=== PATIENT | male | born 1955 | race African-American/Black ===

== ENCOUNTER 2018-11-10 02:58 | Inpatient (IN) | payer OTHER ==
[2018-11-10 03:21] VITALS: BMI 26.6
--- NOTE | 2018-11-10 03:27 | PDOC ---
History of Present Illness - General Chief Complaint: Shortness of Breath Stated Complaint: STOMACH PAIN Time Seen by Provider: 11/10/18 03:27 - History of Present Illness Initial Comments: 11/10/18 04:56 HPI: 63 y/o M with hx of HTN, HLD, CAD s/p CABG and defibrillator, prostate cancer s/ p radiation presentinw tih 1 week of generalized abdominal discomfort and subsequent SOB. He reports he was in his normal state of health, however, he was gradually developing abdominal discomfort and distention. As a result, he was having increased pressure on his chest and he felt difficulty breathing as well as wheezing. His SOB was present at rest but also worsened on exertion. He denies chest pain, palpaitaitons, n/v, fever, chills, FREY, dysuria, diarrhea, cough. He also reports decreased appetite and intermittent LH. PMHx: as noted above ROS: as noted SHx: Denies tobacco use; no alcohol use; no rec drugs Allergies: NKDA ROS: GENERAL/CONSTITUTIONAL: No fever or chills. No weakness. HEAD, EYES, EARS, NOSE AND THROAT: No change in vision. No ear pain or discharge. No sore throat. CARDIOVASCULAR: +shortness of breath RESPIRATORY: No cough or hemoptysis. GASTROINTESTINAL: No nausea, vomiting, diarrhea or constipation. GENITOURINARY: No dysuria, frequency, or change in urination. MUSCULOSKELETAL: No joint or muscle swelling or pain. No neck or back pain. SKIN: No rash NEUROLOGIC: No headache, vertigo, loss of consciousness, or change in strength/ sensation. ENDOCRINE: No increased thirst. No abnormal weight change HEMATOLOGIC/LYMPHATIC: No anemia, easy bleeding, or history of blood clots. ALLERGIC/IMMUNOLOGIC: No hives or skin allergy. PE: GENERAL: Awake, alert, and fully oriented, no acute distress HEAD: No signs of trauma, normocephalic, atraumatic EYES: EOMI, sclera anicteric, conjunctiva clear ENT: Auricles normal inspection, hearing grossly normal, nares patent, oropharynx clear without exudates. Moist mucosa NECK: Normal ROM, no lymphadenopathy LUNGS: No increased work of breathing, symmetrical chest rise, decreased breath sounds on the right lung pereyra HEART: Regular rate and rhythm, normal S1 and S2, no murmurs, peripheral pulses 2+ and equal bilaterally. ABDOMEN: Soft, nondistended, nontender, normoactive bowel sounds. No guarding, no rebound. No masses EXTREMITIES: Normal inspection, Normal range of motion, no edema. No clubbing or cyanosis. NEUROLOGICAL: Cranial nerves II through XII grossly intact. Normal speech, normal gait, no focal sensorimotor deficits SKIN: Warm, Dry, normal turgor, no rashes or lesions noted Past History - Past Medical History Allergies/Adverse Reactions: Allergies Allergy/AdvReac Type Severity Reaction Status Date / Time levofloxacin [From Levaquin] Allergy Verified 03/04/16 12:50 Home Medications: Ambulatory Orders Amiodarone HCl [Cordarone -] 200 mg PO DAILY 06/25/13 Aspirin 81 mg PO DAILY 06/25/13 Carvedilol [Coreg] 25 mg PO BID 06/25/13 Sacubitril/Valsartan [Entresto 24 mg-26 mg Tablet] 1 each PO BID 11/10/18 Anemia: No Asthma: No Cancer: Yes (PROSTATE, TAKING INJECTIONS NOW) Cardiac Disorders: Yes (DEFIBRILLATOR) CVA: No COPD: No CHF: No Dementia: No Diabetes: No GI Disorders: Yes Disorders: No HTN: Yes Hypercholesterolemia: Yes Liver Disease: No Seizures: No Thyroid Disease: No - Surgical History Abdominal Surgery: No Appendectomy: No Cardiac Surgery: Yes (bypass,defibrilator-2008; QUAD BYPASS 2005/pacemaker) Cholecystectomy: No Lung Surgery: No Neurologic Surgery: No Orthopedic Surgery: No - Immunization History Td Vaccination: Yes TDAP Vaccination: Yes Immunization Up to Date: Yes - Suicide/Smoking/Psychosocial Hx Smoking History: Never smoked Have you smoked in the past 12 months: No Information on smoking cessation initiated: No Hx Alcohol Use: No Drug/Substance Use Hx: No Substance Use Type: None Hx Substance Use Treatment: No *Physical Exam - Vital Signs Last Vital Signs Temp Pulse Resp BP Pulse Ox 98.2 F 77 22 H 145/98 88 L 11/10/18 03:18 11/10/18 03:18 11/10/18 03:18 11/10/18 03:18 11/10/18 03:18 ED Treatment Course - LABORATORY CBC & Chemistry Diagram: 11/10/18 04:04 11/10/18 04:04 Medical Decision Making - Medical Decision Making 11/10/18 06:07 63 y/o M with hx of HTN, HLD, CAD s/p CABG and defibrillator, prostate cancer s/ p radiation presentinw tih 1 week of generalized abdominal discomfort and subsequent SOB. Vitals notable for hypoxia 88% on admission and 93% on 5L NC. Pe with decreased breath sounds on the right. -cbc, cmp, cardiac profile, ua -ekg, cxr, kub 11/10/18 06:08 cxr with right middle lobe consolidation with concern for pna will admit to hospitalist; pending callback given ceft and zithromax will draw blood cxs 11/10/18 06:[address] Susie bush *DC/Admit/Observation/Transfer Diagnosis at time of Disposition: SOB (shortness of breath) PNA (pneumonia) Qualifiers: Pneumonia type: due to unspecified organism Laterality: right Lung location: middle lobe of lung Qualified Code(s): J18.1 - Lobar pneumonia, unspecified organism - Discharge Dispostion Condition at time of disposition: Stable Decision to Admit order: Yes - Referrals Referrals: Susie Bush MD [Primary Care Provider] - - Patient Instructions - Post Discharge Activity
--- NOTE | 2018-11-10 03:31 | PDOC ---
Attending Attestation - Resident Resident Name: Rickie,Dominickemmy - ED Attending Attestation I have performed the following: I have examined & evaluated the patient, The case was reviewed & discussed with the resident, I agree w/resident's findings & plan - HPI HPI: 11/10/18 05:12 Pt comes with cough and SOB getting worse. He has pulsox of 88% on arrival. He had a clean bill of health from his car repairer earlier this week. Pt has no fever or chills. Appetite is good. No pitting edema. - Physicial Exam PE: 11/10/18 05:13 Agree with resident exam. Right sided coarse breath sounds. Pt has a wet sounding cough 11/10/18 05:14 ABd soft NT ND. - Medical Decision Making 11/10/18 05:14 CXR pending. EKG needed. Labs are WNL; WBC is twice his normal. 11/10/18 05:56 Pt has a right sided pneumonia and we will admit
[2018-11-10 04:34] LABS: BASO % 0.4 % (0-2.0); EOS % 1.4 % (0-4.5); HEMATOCRIT 40.5 % (35.4-49); HEMOGLOBIN 13.6 GM/dL (11.7-16.9); LYMPH % 12.5 % (8-40); MCH 31.2 pg (25.7-33.7); MCHC 33.5 g/dl (32.0-35.9); MEAN CELL VOLUME 93.1 fl (80-96); MEAN PLT VOLUME 8.8 fl (7.5-11.1); MONO % 5.1 % (3.8-10.2); NEUT % 80.6 % (42.8-82.8); PLATELET COUNT 153 K/MM3 (134-434); RBC 4.35 M/mm3 (4.00-5.60); RDW 14.3 % (11.9-15.9); WHITE BLOOD COUNT 7.2 K/mm3 (4.0-10.0)
[2018-11-10 04:51] LABS: ALBUMIN 3.6 g/dl (3.4-5.0); BILIRUBIN,TOTAL 1.1 mg/dL (0.2-1); CALCIUM 8.6 mg/dL (8.5-10.1); CREATININE 1.4 mg/dL (0.55-1.3); POTASSIUM 4.4 mmol/L (3.5-5.1); TOT PROT 6.6 g/dl (6.4-8.2)
[2018-11-10 05:22] LABS: URINE APPEARANCE CLEAR; URINE BILIRUBIN NEGATIVE (NEGATIVE); URINE COLOR YELLOW; URINE GLUCOSE (UA) NEGATIVE (NEGATIVE); URINE KETONE NEGATIVE (NEGATIVE); URINE LEUK ESTERASE NEGATIVE (NEGATIVE); URINE NITRITE NEGATIVE (NEGATIVE); URINE PROTEIN TRACE (NEGATIVE)
[2018-11-10] MEDS ORDERED: AZITHROMYCIN IVPB 500 MG in DEXTROSE 5%-WATER - 250 ML IVPB ONE (05:52)
[2018-11-10] MEDS ORDERED: CEFTRIAXONE 1 GM in DEXTROSE 5%-WATER - 50 ML IVPB ONE (05:52)
[2018-11-10] MEDS ORDERED: AZITHROMYCIN IVPB 500 MG/250 ML BAG IVPB ONE (06:12)
[2018-11-10] MEDS ORDERED: CEFTRIAXONE 1 GM/50 ML BAG ONE (06:14)
--- NOTE | 2018-11-10 06:53 | HP ---
Admitting History and Physical - Primary Care Physician PCP: Susie Dominguez - Admission Chief Complaint: Abdominal Pain, SOB, Cough History of Present Illness: This is a 63 y/o man with a significant medical history of HTN, HLD, CAD s/p CABG, s/p AICD, Prostate Ca (RT completed 2 yrs ago). Who presents to the ED for abdominal pain and increased SOB with a cough. Patient reports having epigastric pain with "mushy" brown diarrhea x2 episodes starting yesterday am. Patient denies fever, chills, dizziness, CP, palpitations, N/V, constipation, melena, hematochezia, dysuria. Patient's family member reports patient having- Pneumoccal vaccine 2017 History Source: Patient, Family Member Limitations to Obtaining History: No Limitations - Past Medical History Cardiovascular: Yes: CAD, CHF (cardiomyopathy, AICD), HTN, Hyperlipdemia Renal/: Yes: Cancer (Prostate) - Past Surgical History Past Surgical History: Yes: AICD, CABG - Smoking History Smoking history: Never smoked Have you smoked in the past 12 months: No - Alcohol/Substance Use Hx Alcohol Use: No History of Substance Use: reports: None - Social History Usual Living Arrangement: Yes: With Spouse ADL: Independent History of Recent Travel: No Home Medications - Allergies Allergies/Adverse Reactions: Allergies Allergy/AdvReac Type Severity Reaction Status Date / Time levofloxacin [From Levaquin] Allergy Verified 03/04/16 12:50 - Home Medications Home Medications: Ambulatory Orders Amiodarone HCl [Cordarone -] 200 mg PO DAILY 06/25/13 Aspirin 81 mg PO DAILY 06/25/13 Carvedilol [Coreg] 25 mg PO BID 06/25/13 Sacubitril/Valsartan [Entresto 24 mg-26 mg Tablet] 1 each PO BID 11/10/18 Family Disease History - Family Disease History Family Disease History: Heart Disease: Father (), Mother (), Sister ([place]) Review of Systems - Review of Systems Constitutional: reports: No Symptoms Eyes: reports: No Symptoms HENT: reports: No Symptoms Neck: reports: No Symptoms Cardiovascular: reports: Shortness of Breath Respiratory: reports: Cough, SOB, SOB on Exertion Gastrointestinal: reports: Abdominal Pain, Diarrhea Genitourinary: reports: No Symptoms Breasts: reports: No Symptoms Reported Musculoskeletal: reports: No Symptoms Integumentary: reports: No Symptoms Neurological: reports: No Symptoms Endocrine: reports: No Symptoms Hematology/Lymphatic: reports: No Symptoms Psychiatric: reports: No Symptoms Pain Intensity: 2 Physical Examination Vital Signs: Vital Signs Temperature 98.2 F 11/10/18 03:18 Pulse Rate 68 11/10/18 05:45 Respiratory Rate 20 11/10/18 05:45 Blood Pressure 137/75 11/10/18 05:45 O2 Sat by Pulse Oximetry (%) 96 11/10/18 05:45 Constitutional: Yes: Well Nourished, No Distress, Calm Eyes: Yes: WNL, Conjunctiva Clear, EOM Intact, PERRL HENT: Yes: WNL, Atraumatic, Normocephalic Neck: Yes: WNL, Supple, Trachea Midline Cardiovascular: Yes: WNL, Regular Rate and Rhythm, S1, S2 Respiratory: Yes: Diminished (RML B/L bases), On Nasal O2 Gastrointestinal: Yes: Normal Bowel Sounds, Soft. No: Tenderness, Tenderness, Epigastrium, Tenderness, Rebound Renal/: Yes: WNL Breast(s): Yes: WNL Musculoskeletal: Yes: WNL Extremities: Yes: WNL Edema: No Peripheral Pulses WNL: Yes Neurological: Yes: WNL, Alert, Oriented, Cran Nerves II-XII Intact ...Motor Strength: WNL Psychiatric: Yes: WNL, Alert, Oriented Labs: CBC, BMP 11/10/18 04:04 11/10/18 04:04 Imaging - Results Chest X-ray: Image Reviewed Cat Scan: Image Reviewed EKG: Image Reviewed Problem List - Problems (1) PNA (pneumonia) Assessment/Plan: Will treat for CAP CURB65 score 1 qSOFA 0 No leukocytosis likely due to prostate ca w/RT Blood Cultures-pending Urine Legionella ordered Sputum culture-ordered Chest Xray image reviewed- RML Infiltrate awaiting official report Ceftriaxone and Azithromycin given in ED, will continue Appreciate ID consult O2 Monitor CBC, BMP Tylenol prn Code(s): J18.9 - PNEUMONIA, UNSPECIFIED ORGANISM Qualifiers: Pneumonia type: due to unspecified organism Laterality: right Lung location: middle lobe of lung Qualified Code(s): J18.1 - Lobar pneumonia, unspecified organism (2) SOB (shortness of breath) Assessment/Plan: see above Code(s): R06.02 - SHORTNESS OF BREATH (3) MENDOZA (acute kidney injury) Assessment/Plan: Cr 1.4 slightly above baseline Likely secondary to diarrhea/dehydration No IVF secondary to CHF hx Consider Nephrology consult if condition worsens Code(s): N17.9 - ACUTE KIDNEY FAILURE, UNSPECIFIED (4) Abdominal pain Assessment/Plan: Abd Xray- retained stool, no obstruction Monitor BMP Monitor vitals Code(s): R10.9 - UNSPECIFIED ABDOMINAL PAIN (5) Diarrhea Assessment/Plan: Stool Culture O+P Monitor BMP Code(s): R19.7 - DIARRHEA, UNSPECIFIED (6) CAD (coronary artery disease) Assessment/Plan: stable Continue Amiodarone, Asa, Coreg with parameters EKG- reviewed Code(s): I25.10 - ATHSCL HEART DISEASE OF [place] CORONARY ARTERY W/O ANG PCTRS Qualifiers: (7) CHF (congestive heart failure) Assessment/Plan: Chest Xray image reviewed Continue Entresto Code(s): I50.9 - HEART FAILURE, UNSPECIFIED Qualifiers: (8) High blood pressure Assessment/Plan: stable Continue home meds with parameters Monitor renal function Code(s): I10 - ESSENTIAL (PRIMARY) HYPERTENSION Qualifiers: (9) Hypercholesterolemia Assessment/Plan: stable no current home med Code(s): E78.0 - PURE HYPERCHOLESTEROLEMIA * DO NOT USE * (10) Prostate CA Assessment/Plan: s/p RT Code(s): C61 - MALIGNANT NEOPLASM OF PROSTATE (11) S/P CABG (coronary artery bypass graft) Code(s): Z95.1 - PRESENCE OF AORTOCORONARY BYPASS GRAFT Assessment/Plan This is a 63 y/o man with a PMHx of HTN. HLD, CAD s/p CABG, s/p AICD, CHF, Prostate Ca (RT 2 yrs ago). Admitted for Pneumonia for further evaluation of their emergent condition. Plan: See Problem List FEN Fluid Restriction 1L Replete lytes prn Low Na Diet DVT ppx OOB SCDs Heparin SQ Dispo: Requires Inpatient Care Visit type - Emergency Visit Emergency Visit: Yes ED Registration Date: 11/10/18 Care time: The patient presented to the Emergency Department on the above date and was hospitalized for further evaluation of their emergent condition. - New Patient This patient is new to me today: Yes Date on this admission: 11/10/18 - Critical Care Critical Care patient: No
--- NOTE | 2018-11-10 08:56 | PN ---
Progress Note (short form) - Note Progress Note: pt examined in ER on O2 Feeling better no SOB cough+ Vital Signs - 24 hr 11/10/18 11/10/18 11/10/18 03:18 05:45 06:45 Temperature 98.2 F Pulse Rate 77 Pulse Rate [ 68 Apical] Respiratory 22 H 20 Rate Blood Pressure 145/98 Blood Pressure 137/75 [Left Arm] O2 Sat by Pulse 88 L 96 96 Oximetry (%) 11/10/18 11/10/18 11/10/18 07:49 07:50 08:00 Temperature 97.8 F Pulse Rate Pulse Rate [ 50 L Apical] Respiratory 18 Rate Blood Pressure Blood Pressure 120/67 [Left Arm] O2 Sat by Pulse 95 95 Oximetry (%) 11/10/18 11/10/18 11/10/18 10:15 12:29 12:55 Temperature 97.6 F 97.7 F 97.7 F Pulse Rate 51 L 51 L Pulse Rate [ 62 Apical] Respiratory 20 18 18 Rate Blood Pressure 126/76 126/76 Blood Pressure 133/75 [Left Arm] O2 Sat by Pulse Oximetry (%) Current Medications Generic Name Dose Route Start Last Admin Trade Name Freq PRN Reason Stop Dose Admin Amiodarone HCl 200 mg 11/10/18 10:00 11/10/18 10:48 Cordarone - PO 200 mg DAILY RICKIE Administration Aspirin 81 mg 11/10/18 10:00 11/10/18 10:48 Asa - PO 81 mg DAILY RICKIE Administration Carvedilol 25 mg 11/10/18 10:00 11/10/18 10:48 Coreg - PO 25 mg BID [facility] Administration Heparin Sodium (Porcine) 5,000 unit 11/10/18 10:00 11/10/18 10:48 Heparin - SQ 5,000 unit BID [facility] Administration Azithromycin 500 mg in 250 mls @ 250 mls/hr 11/11/18 10:00 Zithromax 500mg Ivpb (Pre-Docked) IVPB DAILY [facility] Ceftriaxone Sodium 1 gm/ 50 mls @ 200 mls/hr 11/11/18 10:00 Dextrose IVPB DAILY [facility] Protocol Sacubitril/Valsartan 1 tab 11/10/18 10:00 11/10/18 10:49 Entresto 24 Mg-26 Mg Tablet PO Not Given BID [facility] Laboratory Results - last 24 hr 11/10/18 11/10/1811/10/19 04:04 04:04 04:04 WBC 7.2 RBC 4.35 Hgb 13.6 Hct 40.5 MCV 93.1 MCH 31.2 MCHC 33.5 RDW 14.3 Plt Count 153 MPV 8.8 Absolute Neuts (auto) 5.8 Neutrophils % 80.6 D Lymphocytes % 12.5 D Monocytes % 5.1 Eosinophils % 1.4 Basophils % 0.4 Nucleated RBC % 0 Sodium 141 Potassium 4.4 Chloride 108 H Carbon Dioxide 29 Anion Gap 4 L BUN 19.0 H Creatinine 1.4 H Est GFR (CKD-EPI)AfAm 61.53 Est GFR (CKD-EPI)NonAf 53.09 Random Glucose 98 Calcium 8.6 Total Bilirubin 1.1 H AST 19 ALT 22 Alkaline Phosphatase 69 Creatine Kinase 168 Creatine Kinase Index 0.6 CK-MB (CK-2) 1.1 Troponin I 0.02 Total Protein 6.6 Albumin 3.6 Urine Color Urine Appearance Urine pH Ur Specific [place] Urine Protein Urine Glucose (UA) Urine Ketones Urine Blood Urine Nitrite Urine Bilirubin Urine Urobilinogen Ur Leukocyte Esterase 11/10/18 04:43 WBC RBC Hgb Hct MCV MCH MCHC RDW Plt Count MPV Absolute Neuts (auto) Neutrophils % Lymphocytes % Monocytes % Eosinophils % Basophils % Nucleated RBC % Sodium Potassium Chloride Carbon Dioxide Anion Gap BUN Creatinine Est GFR (CKD-EPI)AfAm Est GFR (CKD-EPI)NonAf Random Glucose Calcium Total Bilirubin AST ALT Alkaline Phosphatase Creatine Kinase Creatine Kinase Index CK-MB (CK-2) Troponin I Total Protein Albumin Urine Color Yellow Urine Appearance Clear Urine pH 5.0 Ur Specific [place] 1.025 Urine Protein Trace Urine Glucose (UA) Negative Urine Ketones Negative Urine Blood Negative Urine Nitrite Negative Urine Bilirubin Negative Urine Urobilinogen 1.0 Ur Leukocyte Esterase Negative S1 S2 RRR Lungs decreased Ronchi on right base Abd-soft, NT no edema PLAN iv antibiotics monitor renal function ID eval urine antigens check cultures Problem List - Problems (1) MENDOZA (acute kidney injury) Code(s): N17.9 - ACUTE KIDNEY FAILURE, UNSPECIFIED (2) PNA (pneumonia) Code(s): J18.9 - PNEUMONIA, UNSPECIFIED ORGANISM Qualifiers: Pneumonia type: due to unspecified organism Laterality: right Lung location: middle lobe of lung Qualified Code(s): J18.1 - Lobar pneumonia, unspecified organism (3) Prostate CA Code(s): C61 - MALIGNANT NEOPLASM OF PROSTATE (4) SOB (shortness of breath) Code(s): R06.02 - SHORTNESS OF BREATH (5) AICD (automatic cardioverter/defibrillator) present Code(s): Z95.810 - PRESENCE OF AUTOMATIC (IMPLANTABLE) CARDIAC DEFIBRILLATOR (6) CAD (coronary artery disease) Code(s): I25.10 - ATHSCL HEART DISEASE OF [place] CORONARY ARTERY W/O ANG PCTRS Qualifiers:
[2018-11-10] MEDS ORDERED: AMIODARONE HCL 200 MG TABLET (FP) PO SCH (10:00)
[2018-11-10] MEDS ORDERED: CEFTRIAXONE 1 GM in DEXTROSE 5%-WATER - 50 ML IVPB SCH (10:00)
[2018-11-10] MEDS: CARVEDILOL 25 MG TABLET (FP) PO SCH ×2 (10:48→22:14)
[2018-11-10] MEDS: ASPIRIN 81 MG CHEWABLE TABLETS PO SCH (10:48)
[2018-11-10] MEDS: AMIODARONE HCL 200 MG TABLET (FP) PO SCH (10:48)
[2018-11-10] MEDS: HEPARIN NA (PORCINE) 5,000 UNITS/ML 1ML VIAL SQ SCH ×2 (10:48→22:13)
[2018-11-10] MEDS: SACUBITRIL/VALSARTAN 24 MG-26 MG TABLET PO SCH ×2 (10:49→22:14)
--- NOTE | 2018-11-10 11:43 | PN ---
Progress Note (short form) - Note Progress Note: ID CONSULT DICTATED R/O COMMUNITY ACQUIRED V. ATYPICAL PNEUMONIA CAD S/P CABG/ DEFIBRILLATOR LEVAQUIN ALLERGY AWAIT C/S CONTINUE ZITHROMAX/ CEFTRIAXONE
--- NOTE | 2018-11-10 12:29 | CONS ---
DATE OF CONSULTATION: 11/10/2018 The patient is a 63-year-old male with a history of coronary artery disease, status post coronary artery bypass, and implanted defibrillator who is evaluated for pneumonia. He reports not feeling well beginning on Monday, November 05, 2018. He began to experience abdominal discomfort and loose bowel movements. He had increasing dyspnea and chest discomfort. He was evaluated by his agent telegrapher. He presented to the emergency room on November 10, where he was noted to be hypoxemic. Chest x-ray shows increased markings in the right perihilar and base area, consistent with possible pneumonia. He was empirically treated with zithromax and ceftriaxone. At the present time, he has no complaints of chest pain. He is slightly short of breath at rest on nasal cannula. He denies any cough or sputum production. No hemoptysis. The patient denies any ill contacts. He is a nonsmoker. No recent hospitalizations. He reports being up-to-date with respective influenza and pneumococcal vaccines. The patient denies any ill contacts at home or at work. 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 PAST MEDICAL HISTORY: Positive for prostate cancer, status post seed implantation, hypertension, hyperlipidemia, coronary artery disease. PAST SURGICAL HISTORY: Status post coronary artery bypass, implanted defibrillator. ALLERGIES: LEVAQUIN (rash). MEDICATIONS: Amiodarone, aspirin, Coreg, valsartan. 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 He is a nonsmoker, nondrinker. SYSTEMS REVIEW: Neurologic: No loss of consciousness, seizure activity, focal weakness. Cardiac: As per HPI. Respiratory: As per HPI. Gastrointestinal: Positive for diarrhea. Denies vomiting. Genitourinary: Negative for urinary tract infection. LABORATORY DATA: White count 7.2, hematocrit 40.5, platelet count 153. Creatinine 1.4. Liver enzymes normal. Urinalysis negative. PHYSICAL EXAMINATION: General: He is awake, he is weak-appearing, supine in bed. He is not acutely toxic. His breathing is nonlabored on nasal cannula O2. Vital Signs: Temperature 97.6, blood pressure 133/75, pulse 62 and regular, respirations 20/min. HEENT: Sclerae anicteric. Heart Sounds: S1, S2. Lungs: Crackles in the right mid lung field. Abdomen: Soft. No tenderness elicited. No mass, rebound, or rigidity. Extremities: Negative for edema. IMPRESSION: 1. Rule out community-acquired versus atypical right lower lobe pneumonia. 2. Coronary artery disease, status post bypass surgery and defibrillator. 3. QUINOLONE allergy. Await cultures. Obtain sputum culture, urine legionella and pneumococcal antigens. Empiric antibiotic coverage with zithromax and ceftriaxone. Further recommendations pending cultures. Will follow. Thank you for the kind referral. TIRSO VERAS M.D. [id number]
--- NOTE | 2018-11-10 16:44 | EKG ---
Test Reason : Blood Pressure : / mmHG Vent. Rate : 066 BPM Atrial Rate : 066 BPM P-R Int : 230 ms QRS Dur : 124 ms QT Int : 488 ms P-R-T Axes : 070 077 083 degrees QTc Int : 511 ms SINUS RHYTHM WITH 1ST DEGREE A-V BLOCK WITH FREQUENT PREMATURE VENTRICULAR COMPLEXES LEFT ATRIAL ENLARGEMENT LEFT VENTRICULAR HYPERTROPHY WITH QRS WIDENING AND REPOLARIZATION ABNORMALITY ABNORMAL ECG WHEN COMPARED WITH ECG OF 04-MAR-2016 13:36, PREMATURE VENTRICULAR COMPLEXES ARE NOW PRESENT Confirmed by MD WENDI, CITLALY ([id number]) on 11/10/2018 4:43:50 PM Referred By: Confirmed By:CITLALY ADAME MD
[2018-11-10] MEDS ORDERED: PT OWN MED DRAWER 7, Y5N ONE (21:03)
[2018-11-11 08:15] LABS: BLOOD UREA NITROGEN 19.8 mg/dL (7-18); CALCIUM 8.2 mg/dL (8.5-10.1); CREATININE 1.2 mg/dL (0.55-1.3); POTASSIUM 3.9 mmol/L (3.5-5.1)
[2018-11-11 08:18] LABS: BASO % 0.5 % (0-2.0); EOS % 1.8 % (0-4.5); HEMATOCRIT 36.9 % (35.4-49); HEMOGLOBIN 12.3 GM/dL (11.7-16.9); MCH 30.9 pg (25.7-33.7); MCHC 33.4 g/dl (32.0-35.9); MEAN CELL VOLUME 92.6 fl (80-96); MEAN PLT VOLUME 8.2 fl (7.5-11.1); MONO % 8.8 % (3.8-10.2); NEUT % 58.9 % (42.8-82.8); PLATELET COUNT 125 K/MM3 (134-434); RBC 3.98 M/mm3 (4.00-5.60); RDW 13.9 % (11.9-15.9); WHITE BLOOD COUNT 3.8 K/mm3 (4.0-10.0)
[2018-11-11] MEDS ORDERED: cefTRIAXone SODIUM 1 GM VIAL ONE (08:51)
[2018-11-11] MEDS ORDERED: DEXTROSE 5%-WATER - 50 ML IVPB ONE (08:51)
[2018-11-11] MEDS: CEFTRIAXONE 1 GM in DEXTROSE 5%-WATER - 50 ML IVPB SCH (10:11)
[2018-11-11] MEDS: CARVEDILOL 25 MG TABLET (FP) PO SCH ×2 (10:12→22:01)
[2018-11-11] MEDS: HEPARIN NA (PORCINE) 5,000 UNITS/ML 1ML VIAL SQ SCH ×2 (10:12→22:00)
[2018-11-11] MEDS: AMIODARONE HCL 200 MG TABLET (FP) PO SCH (10:12)
[2018-11-11] MEDS: ASPIRIN 81 MG CHEWABLE TABLETS PO SCH (10:12)
[2018-11-11] MEDS ORDERED: PT OWN MED DRAWER 7, Y5N ONE ×2 (10:16→21:57)
[2018-11-11] MEDS: SACUBITRIL/VALSARTAN 24 MG-26 MG TABLET PO SCH ×2 (10:19→22:00)
[2018-11-11] MEDS: AZITHROMYCIN IVPB 500 MG/250 ML BAG IVPB SCH (11:15)
--- NOTE | 2018-11-11 11:54 | PN ---
Progress Note, Physician History of Present Illness: AWAKE, ALERT SEATED IN BED NO COMPLAINTS DENIES CHEST PAIN/ DYSPNEA/ COUGH NO C/O F/C BREATHING NON-LABORED AT REST AFEBRILE LEUKOPENIA/ THROMBOCYTOPENIA NOTED C/S PENDING LEGIONELLA AG (-) - Current Medication List Current Medications: Active Medications Amiodarone HCl (Cordarone -) 200 mg PO DAILY [facility] Last Admin: 11/11/18 10:12 Dose: 200 mg Aspirin (Asa -) 81 mg PO DAILY [facility] Last Admin: 11/11/18 10:12 Dose: 81 mg Carvedilol (Coreg -) 25 mg PO BID [facility] Last Admin: 11/11/18 10:12 Dose: 25 mg Heparin Sodium (Porcine) (Heparin -) 5,000 unit SQ BID [facility] Last Admin: 11/11/18 10:12 Dose: 5,000 unit Azithromycin (Zithromax 500mg Ivpb (Pre-Docked)) 500 mg in 250 mls @ 250 mls/ hr IVPB DAILY [facility] Last Admin: 11/11/18 11:15 Dose: 250 mls/hr Ceftriaxone Sodium 1 gm/ (Dextrose) 50 mls @ 200 mls/hr IVPB DAILY [facility]; Protocol Last Admin: 11/11/18 10:11 Dose: 200 mls/hr Sacubitril/Valsartan (Entresto 24 Mg-26 Mg Tablet) 1 tab PO BID [facility] Last Admin: 11/11/18 10:19 Dose: 1 tab - Objective Vital Signs: Vital Signs Temperature 97.9 F 11/11/18 00:00 Pulse Rate 60 11/11/18 06:00 Respiratory Rate 18 11/11/18 06:00 Blood Pressure 114/66 11/11/18 06:00 O2 Sat by Pulse Oximetry (%) 99 11/10/18 21:00 Constitutional: Yes: No Distress Cardiovascular: Yes: Regular Rate and Rhythm, S1, S2 Respiratory: Yes: Rhonchi Gastrointestinal: Yes: Normal Bowel Sounds, Soft. No: Tenderness Edema: No Labs: CBC, BMP 11/11/18 07:15 11/11/18 07:15 Assessment/Plan PNEUMONIA LEUKOPENIA/ THROMBOCYTOPENIA ? VIRAL LEVAQUIN ALLERGY CONTINUE ZITHROMAX/ CEFTRIAXONE RESP VIRAL PANEL
--- NOTE | 2018-11-11 12:11 | PN ---
Progress Note (short form) - Note Progress Note: pt seen/examined chart reviewed awake/ comfortable feels better. Vital Signs Temp 97.9 F 11/11/18 00:00 Pulse 60 11/11/18 06:00 Resp 18 11/11/18 06:00 BP 114/66 11/11/18 06:00 Pulse Ox 99 11/10/18 21:00 Intake & Output 11/10/18 11/11/18 11/11/18 23:59 11:59 23:59 Intake Total 0 Balance 0 Weight 175 lb Intake: IV 0 Saline lock 0 Other: Voiding Method Urinal # Unmeasured Voids Void 1 Bowel Movement No Height 5 ft 8 in Body Mass Index (BMI) 26.6 Weight Measurement [facility] Medications Amiodarone HCl (Cordarone -) 200 mg PO DAILY [facility] Last Admin: 11/11/18 10:12 Dose: 200 mg Aspirin (Asa -) 81 mg PO DAILY [facility] Last Admin: 11/11/18 10:12 Dose: 81 mg Carvedilol (Coreg -) 25 mg PO BID [facility] Last Admin: 11/11/18 10:12 Dose: 25 mg Heparin Sodium (Porcine) (Heparin -) 5,000 unit SQ BID RICKIE Last Admin: 11/11/18 10:12 Dose: 5,000 unit Azithromycin (Zithromax 500mg Ivpb (Pre-Docked)) 500 mg in 250 mls @ 250 mls/ hr IVPB DAILY [facility] Last Admin: 11/11/18 11:15 Dose: 250 mls/hr Ceftriaxone Sodium 1 gm/ (Dextrose) 50 mls @ 200 mls/hr IVPB DAILY [facility]; Protocol Last Admin: 11/11/18 10:11 Dose: 200 mls/hr Sacubitril/Valsartan (Entresto 24 Mg-26 Mg Tablet) 1 tab PO BID [facility] Last Admin: 11/11/18 10:19 Dose: 1 tab CBC, BMP 11/11/18 07:15 11/11/18 07:15 Microbiology 11/11/18 06:10 Legionella Antigen - Preliminary Urine For Antigen Detection Streptococcus pneumoniae Antigen (M - Preliminary 11/10/18 06:15 Blood Culture - Preliminary Blood - Peripheral Venous NO GROWTH OBTAINED AFTER 24 HOURS, INCUBATION TO CONTINUE FOR 4 DAYS. 11/10/18 06:15 Blood Culture - Preliminary Blood - Peripheral Venous NO GROWTH OBTAINED AFTER 24 HOURS, INCUBATION TO CONTINUE FOR 4 DAYS. Physical Exam. Awake/ comfortable. S1 S2 RRR Lungs -- scatterd rhonchi Ronchi on right base Abd-soft, NT no edema PLAN Better iv antibiotics monitor renal function- better ID eval noted/ appreciated check cultures. will follow Problem List - Problems (1) MENDOZA (acute kidney injury) Code(s): N17.9 - ACUTE KIDNEY FAILURE, UNSPECIFIED (2) PNA (pneumonia) Code(s): J18.9 - PNEUMONIA, UNSPECIFIED ORGANISM Qualifiers: Pneumonia type: due to unspecified organism Laterality: right Lung location: middle lobe of lung Qualified Code(s): J18.1 - Lobar pneumonia, unspecified organism (3) Prostate CA Code(s): C61 - MALIGNANT NEOPLASM OF PROSTATE (4) SOB (shortness of breath) Code(s): R06.02 - SHORTNESS OF BREATH (5) AICD (automatic cardioverter/defibrillator) present Code(s): Z95.810 - PRESENCE OF AUTOMATIC (IMPLANTABLE) CARDIAC DEFIBRILLATOR (6) CAD (coronary artery disease) Code(s): I25.10 - ATHSCL HEART DISEASE OF [place] CORONARY ARTERY W/O ANG PCTRS Qualifiers:
[2018-11-12] MEDS ORDERED: PT OWN MED DRAWER 7, Y5N ONE ×2 (09:42→20:21)
[2018-11-12] MEDS ORDERED: cefTRIAXone SODIUM 1 GM VIAL ONE (09:42)
[2018-11-12] MEDS ORDERED: DEXTROSE 5%-WATER - 50 ML IVPB ONE (09:42)
[2018-11-12] MEDS: CARVEDILOL 25 MG TABLET (FP) PO SCH ×2 (09:45→21:02)
[2018-11-12] MEDS: ASPIRIN 81 MG CHEWABLE TABLETS PO SCH (09:45)
[2018-11-12] MEDS: AMIODARONE HCL 200 MG TABLET (FP) PO SCH (09:45)
[2018-11-12] MEDS: CEFTRIAXONE 1 GM in DEXTROSE 5%-WATER - 50 ML IVPB SCH (09:46)
[2018-11-12] MEDS: SACUBITRIL/VALSARTAN 24 MG-26 MG TABLET PO SCH ×2 (09:46→21:02)
[2018-11-12] MEDS: HEPARIN NA (PORCINE) 5,000 UNITS/ML 1ML VIAL SQ SCH ×2 (09:47→21:03)
[2018-11-12] MEDS: AZITHROMYCIN IVPB 500 MG/250 ML BAG IVPB SCH (10:26)
--- NOTE | 2018-11-12 11:56 | PN ---
Progress Note (short form) - Note Progress Note: pt examined on O2 Feeling better no SOB Vital Signs - 24 hr 11/11/18 11/11/18 11/11/18 14:00 18:00 21:00 Temperature 97.9 F 97.6 F Pulse Rate 65 71 Respiratory 18 18 Rate Blood Pressure 133/70 127/96 O2 Sat by Pulse 94 L Oximetry (%) 11/11/18 11/12/18 22:00 06:00 Temperature 97.7 F 98.1 F Pulse Rate 61 69 Respiratory 18 20 Rate Blood Pressure 115/74 143/93 O2 Sat by Pulse Oximetry (%) Current Medications Generic Name Dose Route Start Last Admin Trade Name Freq PRN Reason Stop Dose Admin Amiodarone HCl 200 mg 11/10/18 10:00 11/12/18 09:45 Cordarone - PO 200 mg DAILY RICKIE Administration Aspirin 81 mg 11/10/18 10:00 11/12/18 09:45 Asa - PO 81 mg DAILY RICKIE Administration Carvedilol 25 mg 11/10/18 10:00 11/12/18 09:45 Coreg - PO 25 mg BID RICKIE Administration Heparin Sodium (Porcine) 5,000 unit 11/10/18 10:00 11/12/18 09:47 Heparin - SQ 5,000 unit BID RICKIE Administration Azithromycin 500 mg in 250 mls @ 250 mls/hr 11/11/18 10:00 11/12/18 10:26 Zithromax 500mg Ivpb (Pre-Docked) IVPB 250 mls/hr DAILY RICKIE Administration Ceftriaxone Sodium 1 gm/ 50 mls @ 200 mls/hr 11/11/18 10:00 11/12/18 09:46 Dextrose IVPB 200 mls/hr DAILY RICKIE Administration Protocol Sacubitril/Valsartan 1 tab 11/10/18 10:00 11/12/18 09:46 Entresto 24 Mg-26 Mg Tablet PO 1 tab BID RICKIE Administration S1 S2 RRR Lungs clear Abd-soft, NT no edema PLAN iv antibiotics renal function normal ID eval noted urine antigens negative cultures negative dc plan for tomorrow Problem List - Problems (1) MENDOZA (acute kidney injury) Code(s): N17.9 - ACUTE KIDNEY FAILURE, UNSPECIFIED (2) PNA (pneumonia) Code(s): J18.9 - PNEUMONIA, UNSPECIFIED ORGANISM Qualifiers: Pneumonia type: due to unspecified organism Laterality: right Lung location: middle lobe of lung Qualified Code(s): J18.1 - Lobar pneumonia, unspecified organism (3) Prostate CA Code(s): C61 - MALIGNANT NEOPLASM OF PROSTATE (4) SOB (shortness of breath) Code(s): R06.02 - SHORTNESS OF BREATH (5) AICD (automatic cardioverter/defibrillator) present Code(s): Z95.810 - PRESENCE OF AUTOMATIC (IMPLANTABLE) CARDIAC DEFIBRILLATOR (6) CAD (coronary artery disease) Code(s): I25.10 - ATHSCL HEART DISEASE OF [place] CORONARY ARTERY W/O ANG PCTRS Qualifiers:
--- NOTE | 2018-11-12 19:13 | PN ---
Progress Note, Physician History of Present Illness: AWAKE, ALERT SEATED IN BED NO COMPLAINTS DENIES CHEST PAIN/ DYSPNEA/ COUGH NO C/O F/C BREATHING NON-LABORED AT REST ON NC AFEBRILE LEUKOPENIA/ THROMBOCYTOPENIA LEGIONELLA AG (-) - Current Medication List Current Medications: Active Medications Amiodarone HCl (Cordarone -) 200 mg PO DAILY [facility] Last Admin: 11/12/18 09:45 Dose: 200 mg Aspirin (Asa -) 81 mg PO DAILY [facility] Last Admin: 11/12/18 09:45 Dose: 81 mg Carvedilol (Coreg -) 25 mg PO BID [facility] Last Admin: 11/12/18 09:45 Dose: 25 mg Heparin Sodium (Porcine) (Heparin -) 5,000 unit SQ BID [facility] Last Admin: 11/12/18 09:47 Dose: 5,000 unit Azithromycin (Zithromax 500mg Ivpb (Pre-Docked)) 500 mg in 250 mls @ 250 mls/ hr IVPB DAILY [facility] Last Admin: 11/12/18 10:26 Dose: 250 mls/hr Ceftriaxone Sodium 1 gm/ (Dextrose) 50 mls @ 200 mls/hr IVPB DAILY [facility]; Protocol Last Admin: 11/12/18 09:46 Dose: 200 mls/hr Sacubitril/Valsartan (Entresto 24 Mg-26 Mg Tablet) 1 tab PO BID [facility] Last Admin: 11/12/18 09:46 Dose: 1 tab - Objective Vital Signs: Vital Signs Temperature 97.8 F 11/12/18 17:20 Pulse Rate 63 11/12/18 17:20 Respiratory Rate 18 11/12/18 17:20 Blood Pressure 143/80 11/12/18 17:20 O2 Sat by Pulse Oximetry (%) 94 L 11/11/18 21:00 Constitutional: Yes: No Distress Cardiovascular: Yes: Regular Rate and Rhythm, S1, S2 Respiratory: Yes: CTA Bilaterally Gastrointestinal: Yes: Normal Bowel Sounds, Soft Edema: No Labs: CBC, BMP 11/11/18 07:15 11/11/18 07:15 Assessment/Plan PNEUMONIA LEUKOPENIA/ THROMBOCYTOPENIA ? VIRAL LEVAQUIN ALLERGY CONTINUE ZITHROMAX/ CEFTRIAXONE RESP VIRAL PANEL PENDING REPEAT CBC, CXR AM SWITCH TO PO AM
[2018-11-13 08:19] LABS: BASO % 0.8 % (0-2.0); EOS % 2.9 % (0-4.5); HEMATOCRIT 34.9 % (35.4-49); LYMPH % 30.5 % (8-40); MCH 31.4 pg (25.7-33.7); MCHC 34.5 g/dl (32.0-35.9); MEAN CELL VOLUME 91.2 fl (80-96); MONO % 8.3 % (3.8-10.2); NEUT % 57.5 % (42.8-82.8); PLATELET COUNT 137 K/MM3 (134-434); RBC 3.83 M/mm3 (4.00-5.60); RDW 14.3 % (11.9-15.9); WHITE BLOOD COUNT 3.8 K/mm3 (4.0-10.0)
[2018-11-13] MEDS ORDERED: cefTRIAXone SODIUM 1 GM VIAL ONE (09:44)
[2018-11-13] MEDS ORDERED: DEXTROSE 5%-WATER - 50 ML IVPB ONE (09:44)
[2018-11-13] MEDS ORDERED: PT OWN MED DRAWER 7, Y5N ONE (09:44)
[2018-11-13] MEDS: AMIODARONE HCL 200 MG TABLET (FP) PO SCH (09:47)
[2018-11-13] MEDS: CARVEDILOL 25 MG TABLET (FP) PO SCH (09:47)
[2018-11-13] MEDS: ASPIRIN 81 MG CHEWABLE TABLETS PO SCH (09:47)
[2018-11-13] MEDS: CEFTRIAXONE 1 GM in DEXTROSE 5%-WATER - 50 ML IVPB SCH (09:48)
[2018-11-13] MEDS: SACUBITRIL/VALSARTAN 24 MG-26 MG TABLET PO SCH (09:48)
[2018-11-13] MEDS: HEPARIN NA (PORCINE) 5,000 UNITS/ML 1ML VIAL SQ SCH (09:49)
--- NOTE | 2018-11-13 09:58 | DS ---
Physical Examination Vital Signs: Vital Signs Temperature 98.2 F 11/13/18 06:00 Pulse Rate 63 11/13/18 06:00 Respiratory Rate 20 11/13/18 06:00 Blood Pressure 143/98 11/13/18 06:00 O2 Sat by Pulse Oximetry (%) 94 L 11/11/18 21:00 Constitutional: Yes: No Distress, Calm Cardiovascular: Yes: Regular Rate and Rhythm Respiratory: Yes: CTA Bilaterally Gastrointestinal: Yes: Normal Bowel Sounds, Soft. No: Tenderness Edema: No Labs: CBC, BMP 11/13/18 07:32 11/11/18 07:15 Discharge Summary Reason For Visit: SHORTNESS OF BREATH, PNEUMONIA Current Active Problems MENDOZA (acute kidney injury) (Acute) Abdominal pain (Acute) Diarrhea (Acute) PNA (pneumonia) (Acute) Prostate CA (Acute) SOB (shortness of breath) (Acute) Hospital Course: Admitted for SOB , found to have right lower lobe pneumonia urine antigens negative Seen by ID-- started on Ceftriaxone and Zithromax Pt better he does not require oxygen Pt improved clinically CXR better Viral panel is pending He had leukopenia and thrombocytopenia which may be viral stable for dc home Follow up with PMD in 2 weeks-- repeat CXR and get labs done at that time Will be dc home po augmentin x 7 days Condition: Stable - Instructions Diet, Activity, Other Instructions: Patient was admitted in [facility] on 11/10/18- 11/13/18. He may return to work on 11/18/18. Referrals: Susie Dominguez MD [Primary Care Provider] - Disposition: HOME - Home Medications Comprehensive Discharge Medication List: Ambulatory Orders Amiodarone HCl [Cordarone -] 200 mg PO DAILY 06/25/13 Aspirin 81 mg PO DAILY 06/25/13 Carvedilol [Coreg] 25 mg PO BID 06/25/13 Sacubitril/Valsartan [Entresto 24 mg-26 mg Tablet] 1 each PO BID 11/10/18
[2018-11-13] MEDS: AZITHROMYCIN IVPB 500 MG/250 ML BAG IVPB SCH (10:33)
--- NOTE | 2018-11-13 11:53 | PN ---
Progress Note, Physician History of Present Illness: AWAKE, ALERT SEATED IN BED NO COMPLAINTS DENIES CHEST PAIN/ DYSPNEA/ COUGH NO C/O F/C BREATHING NON-LABORED LEUKOPENIA NOTED THROMBOCYTOPENIA IMPROVED LEGIONELLA AG (-) - Current Medication List Current Medications: Active Medications Amiodarone HCl (Cordarone -) 200 mg PO DAILY [facility] Last Admin: 11/13/18 09:47 Dose: 200 mg Aspirin (Asa -) 81 mg PO DAILY [facility] Last Admin: 11/13/18 09:47 Dose: 81 mg Carvedilol (Coreg -) 25 mg PO BID [facility] Last Admin: 11/13/18 09:47 Dose: 25 mg Heparin Sodium (Porcine) (Heparin -) 5,000 unit SQ BID [facility] Last Admin: 11/13/18 09:49 Dose: 5,000 unit Azithromycin (Zithromax 500mg Ivpb (Pre-Docked)) 500 mg in 250 mls @ 250 mls/ hr IVPB DAILY [facility] Last Admin: 11/13/18 10:33 Dose: 250 mls/hr Ceftriaxone Sodium 1 gm/ (Dextrose) 50 mls @ 200 mls/hr IVPB DAILY [facility]; Protocol Last Admin: 11/13/18 09:48 Dose: 200 mls/hr Sacubitril/Valsartan (Entresto 24 Mg-26 Mg Tablet) 1 tab PO BID [facility] Last Admin: 11/13/18 09:48 Dose: 1 tab - Objective Vital Signs: Vital Signs Temperature 98.2 F 11/13/18 06:00 Pulse Rate 63 11/13/18 06:00 Respiratory Rate 20 11/13/18 06:00 Blood Pressure 143/98 11/13/18 06:00 O2 Sat by Pulse Oximetry (%) 94 L 11/11/18 21:00 Constitutional: Yes: No Distress Eyes: Yes: Conjunctiva Clear Cardiovascular: Yes: Regular Rate and Rhythm, S1, S2 Respiratory: Yes: CTA Bilaterally Gastrointestinal: Yes: Normal Bowel Sounds, Soft. No: Tenderness Edema: No Labs: CBC, BMP 11/13/18 07:32 11/11/18 07:15 Assessment/Plan PNEUMONIA LEUKOPENIA/ THROMBOCYTOPENIA ? VIRAL LEVAQUIN ALLERGY RESP VIRAL PANEL PENDING REPEAT CXR PENDING SWITCH TO PO AUGMENTIN BID X 7D
[2018-11-13 17:13] VITALS: BP 140/90; PULSE 78; TEMP 97.5
== END 2018-11-13 18:16 | disposition home or self-care (01) | DRG 194 ==
LOC: JER 02:58 → JERBED 06:10 → J8W 11:04
PROVIDERS: ADMIT Internal Medicine; ATTEND Internal Medicine
DX: J18.9 Pneumonia, unspecified organism (principal); N17.9 Acute kidney failure, unspecified; I42.9 Cardiomyopathy, unspecified; R10.9 Unspecified abdominal pain; R19.7 Diarrhea, unspecified; I11.0 Hypertensive heart disease with heart failure; C61 Malignant neoplasm of prostate; I25.10 Atherosclerotic heart disease of native coronary artery without angina pectoris; Z95.1 Presence of aortocoronary bypass graft; D72.819 Decreased white blood cell count, unspecified; D69.6 Thrombocytopenia, unspecified; Z95.810 Presence of automatic (implantable) cardiac defibrillator; E78.5 Hyperlipidemia, unspecified; I50.9 Heart failure, unspecified
CPT/HCPCS: 36415; 71046-TC-FY; 74019-TC-FY; 80048; 80053; 81003; 82550; 82553; 84484; 85025; 87040; 87045; 87046; 87086; 87177; 87209; 87899; 93005; 93010; 94761; 99284-25; J1644

== ENCOUNTER 2018-11-16 01:57 | Emergency (ER) | payer OTHER ==
--- NOTE | 2018-11-16 02:11 | PDOC ---
Attending Attestation - Resident Resident Name: Lakeisha Nevarez - ED Attending Attestation I have performed the following: I have examined & evaluated the patient, The case was reviewed & discussed with the resident, I agree w/resident's findings & plan - HPI HPI: 11/16/18 02:56 PT WITH htn/HIGH CHOL/ cabgX4/ NOW WITH SOB, ABD PAIN, CP, AND HTN 170/121. - Physicial Exam PE: 11/16/18 05:34 Normal exam. Agree with resident. Afebrile. No rebound, guarding, no flank pain. Heat and lungs normal. - Medical Decision Making 11/16/18 04:39 All labs are normal 11/16/18 05:35 EKG normal Imaging studies normal 11/16/18 05:35 Pt's BP is elevated, but he usually takes his meds at 3am and he missed all of his BP meds. SO he took them at 5am. Pt will be dischagred home.
--- NOTE | 2018-11-16 02:12 | PDOC ---
History of Present Illness - General Stated Complaint: ABD PAIN,BP PROBLEM Time Seen by Provider: 11/16/18 02:09 Past History - Past Medical History Allergies/Adverse Reactions: Allergies Allergy/AdvReac Type Severity Reaction Status Date / Time levofloxacin [From Levaquin] Allergy Verified 11/16/18 02:16 Home Medications: Ambulatory Orders Amiodarone HCl [Cordarone -] 200 mg PO DAILY 06/25/13 Aspirin 81 mg PO DAILY 06/25/13 Carvedilol [Coreg] 25 mg PO BID 06/25/13 Sacubitril/Valsartan [Entresto 24 mg-26 mg Tablet] 1 each PO BID 11/10/18 Amoxicillin/Potassium Clav [Augmentin 875-125 Tablet] 1 each PO BID #14 tablet 11/13/18 Anemia: No Asthma: No Cancer: Yes (PROSTATE, TAKING INJECTIONS NOW) Cardiac Disorders: Yes (DEFIBRILLATOR) CVA: No COPD: No CHF: No Dementia: No Diabetes: No GI Disorders: Yes Disorders: No HTN: Yes Hypercholesterolemia: Yes Liver Disease: No Seizures: No Thyroid Disease: No - Surgical History Abdominal Surgery: No Appendectomy: No Cardiac Surgery: Yes (bypass,defibrilator-2008; QUAD BYPASS 2005/pacemaker) Cholecystectomy: No Lung Surgery: No Neurologic Surgery: No Orthopedic Surgery: No - Immunization History Td Vaccination: Yes TDAP Vaccination: Yes Immunization Up to Date: Yes - Suicide/Smoking/Psychosocial Hx Smoking History: Never smoked Have you smoked in the past 12 months: No Hx Alcohol Use: No Drug/Substance Use Hx: No Substance Use Type: None Hx Substance Use Treatment: No ED Treatment Course - LABORATORY CBC & Chemistry Diagram: 11/16/18 03:00 11/16/18 03:00 Medical Decision Making - Medical Decision Making HPI: 63yo M with PMH of CAD s/p quadruple bypass, pacemaker/defibrillator, prostate CA treated with radiation two years ago, HTN, HLD presenting with multiple complaints including abdominal pain, chest pain, shortness of breath, headache, and high blood pressure reading. Out of these complaints, he is most concerned for elevated blood pressure reading at home, 177/121. Patient was recently admitted to this hospital for pneumonia, treated with ceftriaxone and azithromycin, and discharged on 11/13/18 with Augmentin. Patient states he started feeling epigastric abdominal pain and shortness of breath shortly after eating last night. He has never had pain like this before. Denies history of acid reflux. No history of abdominal surgeries. Denies nausea or vomiting. Last bowel movement was yesterday and was a normal formed brown stool without blood. Twenty minutes before history-taking, patient started feeling non-radiating, non -palpable, non-pleuritic chest pain described as "dull." No nausea, vomiting, or diaphoresis. Never had chest pain like this before. No hemoptysis, no recent surgical history, no hormone use, no history of DVT or PE. No fever or chills. PCP: Dr. Susie Dominguez Cardio: Dr. Herrera (spelling?) ROS: Constitutional: no fever, no chills HEENT: no throat pain, no dysphagia Cardiovascular: +chest pain, no palpitations Respiratory: no cough, +shortness of breath Gastrointestinal: +abdominal pain, no nausea Genitourinary: no dysuria, no hematuria Musculoskeletal: no myalgia, no arthralgia Skin: no rash, no itching Neurologic: +headache, no weakness PE: General: Awake, alert, and fully oriented, in no acute distress Head: No signs of trauma Eyes: EOMI, sclera anicteric ENT: Moist mucus membranes Neck: Normal ROM, supple Lungs: Lungs clear, Normal breath sounds Cardio: Regular rhythm, S1 and S2 present Abdomen: Soft, nontender to palpation, nondistended. No guarding, no rebound, no masses. No CVA tenderness. Extremities: Normal range of motion, Distal pulses present SKIN: Warm, Dry, normal turgor Neurologic: Cranial nerves II through XII grossly intact. Normal speech ED Course/MDM: DDX including but not limited to GERD, ACS, PE, PNA, anemia, metabolic derangement VS significant for high BP 160/116 Labs, EKG, CXR Pepcid 11/16/18 02:12 Patient asked Nurse Dariana for something to eat. Given patient is here for complaint of abdominal pain, we will keep him NPO for now. 11/16/18 03:51 CBC WBC 6.8 K/mm3 (4.0-10.0) 11/16/18 03:00 RBC 4.39 M/mm3 (4.00-5.60) 11/16/18 03:00 Hgb 13.7 GM/dL (11.7-16.9) 11/16/18 03:00 Hct 40.8 % (35.4-49) D 11/16/18 03:00 MCV 92.9 fl (80-96) 11/16/18 03:00 MCH 31.2 pg (25.7-33.7) 11/16/18 03:00 MCHC 33.6 g/dl (32.0-35.9) 11/16/18 03:00 RDW 14.1 % (11.9-15.9) 11/16/18 03:00 Plt Count 154 K/MM3 (134-434) 11/16/18 03:00 MPV 8.8 fl (7.5-11.1) 11/16/18 03:00 Absolute Neuts (auto) 5.4 K/mm3 (1.5-8.0) 11/16/18 03:00 Neutrophils % 78.7 % (42.8-82.8) D 11/16/18 03:00 Lymphocytes % 14.2 % (8-40) D 11/16/18 03:00 Monocytes % 6.1 % (3.8-10.2) 11/16/18 03:00 Eosinophils % 0.6 % (0-4.5) 11/16/18 03:00 Basophils % 0.4 % (0-2.0) 11/16/18 03:00 Nucleated RBC % 0 % (0-0) 11/16/18 03:00 No leukocytosis CMP Sodium 141 mmol/L (136-145) 11/16/18 03:00 Potassium 4.4 mmol/L (3.5-5.1) 11/16/18 03:00 Chloride 105 mmol/L (98-107) 11/16/18 03:00 Carbon Dioxide 27 mmol/L (21-32) 11/16/18 03:00 Anion Gap No Result Required. 11/16/18 03:00 BUN 17.1 mg/dL (7-18) 11/16/18 03:00 Creatinine 1.4 mg/dL (0.55-1.3) H 11/16/18 03:00 Est GFR (CKD-EPI)AfAm 61.53 11/16/18 03:00 Est GFR (CKD-EPI)NonAf 53.09 11/16/18 03:00 Random Glucose 96 mg/dL (74-106) 11/16/18 03:00 Calcium 9.1 mg/dL (8.5-10.1) 11/16/18 03:00 Total Bilirubin 1.6 mg/dL (0.2-1) H 11/16/18 03:00 AST 66 U/L (15-37) H 11/16/18 03:00 ALT 94 U/L (13-61) H 11/16/18 03:00 Alkaline Phosphatase 68 U/L (45-117) 11/16/18 03:00 Creatine Kinase 128 U/L (26-308) 11/16/18 03:00 Troponin I 0.04 ng/ml (0.00-0.05) 11/16/18 03:00 Total Protein 7.2 g/dl (6.4-8.2) 11/16/18 03:00 Albumin 4.2 g/dl (3.4-5.0) 11/16/18 03:00 Electrolytes unremarkable Cr elevated Tpn 0.04, indeterminate range Elevated TBili, 1.6 Mildly elevated AST, ALT When compared to Xray two days prior, RLL appears hazier 11/16/18 04:03 I have low suspicion for acute abdominal pathology as patient without any tenderness to palpation. BP is elevated, but patient missed his 3am hypertension meds. Meds taken at 5am while here in the ED. Repeat BP in the 130s systolic. Given tylenol for his headache Patient discharged with return precautions *DC/Admit/Observation/Transfer Diagnosis at time of Disposition: High blood pressure Qualifiers: Hypertension type: unspecified Qualified Code(s): I10 - Essential (primary) hypertension Abdominal pain Qualifiers: Abdominal location: epigastric Qualified Code(s): R10.13 - Epigastric pain - Discharge Dispostion Disposition: HOME Condition at time of disposition: Stable - Referrals Referrals: Susie Dominguez MD [Primary Care Provider] - - Patient Instructions Printed Discharge Instructions: DI for Abdominal Pain-Adult Additional Instructions: You came to the emergency department for headache, chest pain, abdominal pain, and high blood pressure. Labs, CXR, and EKG did not indicate acute pathology. Continue taking home medications as prescribed by your doctor. You can take [id number] tylenol for your pain. Follow the instructions on the medication bottle. Follow-up with a primary care provider within 72 hours to discuss this ED visit and to further evaluate your symptoms. Your workup is not complete until you do so. Call tomorrow morning and make an appointment at the number provided. Immediate medical attention is required if you experience: worsening headache, have a seizure, have focal numbness or weakness, chest pain, shortness of breath , or any new or concerning symptoms. If you think you are having an emergency, call for emergency medical services or present to the emergency department right away. - Post Discharge Activity
[2018-11-16] MEDS ORDERED: FAMOTIDINE 20 MG/50 ML IVPB 20 MG/50 ML MG IVPB ONE ×2 (02:41→03:41)
[2018-11-16 02:46] VITALS: BP 160/116; PULSE 90; TEMP 97.9; BMI 25.8
[2018-11-16 03:21] LABS: BASO % 0.4 % (0-2.0); EOS % 0.6 % (0-4.5); HEMATOCRIT 40.8 % (35.4-49); HEMOGLOBIN 13.7 GM/dL (11.7-16.9); LYMPH % 14.2 % (8-40); MCH 31.2 pg (25.7-33.7); MCHC 33.6 g/dl (32.0-35.9); MEAN CELL VOLUME 92.9 fl (80-96); MEAN PLT VOLUME 8.8 fl (7.5-11.1); MONO % 6.1 % (3.8-10.2); NEUT % 78.7 % (42.8-82.8); PLATELET COUNT 154 K/MM3 (134-434); RBC 4.39 M/mm3 (4.00-5.60); RDW 14.1 % (11.9-15.9); WHITE BLOOD COUNT 6.8 K/mm3 (4.0-10.0)
[2018-11-16 03:38] LABS: INR 1.11 (0.83-1.09); PROTHROMBIN TIME (PATIENT) 13.1 SEC (9.7-13.0)
[2018-11-16 04:09] LABS: CALCIUM 9.1 mg/dL (8.5-10.1); CREATININE 1.4 mg/dL (0.55-1.3); POTASSIUM 4.4 mmol/L (3.5-5.1)
[2018-11-16 04:10] LABS: ALBUMIN 4.2 g/dl (3.4-5.0); BILIRUBIN,TOTAL 1.6 mg/dL (0.2-1); TOT PROT 7.2 g/dl (6.4-8.2)
[2018-11-16] MEDS ORDERED: ACETAMINOPHEN 325 MG TABLET (FP) PO ONE (05:34)
[2018-11-16] MEDS ORDERED: ACETAMINOPHEN 325 MG TABLET (FP) ONE (05:40)
--- NOTE | 2018-11-18 18:25 | EKG ---
Test Reason : Blood Pressure : / mmHG Vent. Rate : 092 BPM Atrial Rate : 092 BPM P-R Int : 184 ms QRS Dur : 132 ms QT Int : 406 ms P-R-T Axes : -27 036 123 degrees QTc Int : 502 ms NORMAL SINUS RHYTHM LEFT VENTRICULAR HYPERTROPHY WITH QRS WIDENING AND REPOLARIZATION ABNORMALITY ABNORMAL ECG WHEN COMPARED WITH ECG OF 10-NOV-2018 05:32, PREMATURE VENTRICULAR COMPLEXES ARE NO LONGER PRESENT Confirmed by ERIC ALANIS MD ([id number]) on 11/18/2018 6:25:09 PM Referred By: Confirmed By:ERIC ALANIS MD
== END 2018-11-16 06:53 | disposition home or self-care (01) ==
LOC: JER 01:57
PROC: 3E033GC Introduction of Other Therapeutic Substance into Peripheral Vein, Percutaneous Approach (ICD-10-PCS; principal; 2018-11-16)
DX: I10 Essential (primary) hypertension (principal); R10.13 Epigastric pain; I25.10 Atherosclerotic heart disease of native coronary artery without angina pectoris; Z95.1 Presence of aortocoronary bypass graft; Z95.810 Presence of automatic (implantable) cardiac defibrillator; C61 Malignant neoplasm of prostate; E78.00 Pure hypercholesterolemia, unspecified; R94.5 Abnormal results of liver function studies
CPT/HCPCS: 36415; 71045-TC-FY; 80053; 82550; 83690; 84484; 85025; 85610; 93005; 93010; 99283-25

== ENCOUNTER 2024-10-04 19:09 | Observation (INO) | payer OTHER ==
[2024-10-04 19:21] VITALS: BMI 25.8
[2024-10-04 19:59] LABS: RDW 13.2 % (12.2-16.4)
[2024-10-04 20:01] LABS: IMMATURE PLATELET FRACTION # 3.20 x10^3/uL; MCHC 34.5 g/dl (32.3-36.5); MEAN CELL VOLUME 91.2 fl (79.0-92.2); MEAN PLT VOLUME 10.3 fl (9.4-12.4)
[2024-10-04] MEDS ORDERED: ASPIRIN 81 MG CHEWABLE TABLETS ONE (20:04)
[2024-10-04 20:06] LABS: INR 1.08 (0.83-1.09); PROTHROMBIN TIME (PATIENT) 11.8 SEC (9.7-13.0)
[2024-10-04 20:09] LABS: ACTIVATED PTT 28.9 SECONDS (25.2-36.5)
[2024-10-04 20:10] LABS: CO2 25.0 mmol/L (21-32); GLUCOSE,RANDOM 104.0 mg/dL (74-106)
[2024-10-04] MEDS: ASPIRIN 81 MG CHEWABLE TABLETS PO ONE (20:12)
[2024-10-04 20:13] LABS: SGOT/AST 21.0 U/L (15-37); SGPT/ALT 26.0 U/L (13-61)
[2024-10-04 20:14] LABS: CREATININE 1.2 mg/dL (0.55-1.3)
[2024-10-04 20:15] LABS: TOT PROT 6.7 g/dl (6.4-8.2)
[2024-10-04 20:16] LABS: ALK PHOS 56.0 U/L (45-117)
[2024-10-04 20:28] LABS: N-TERMINAL BNP 5040.5 pg/ml (5-125)
[2024-10-04] MEDS ORDERED: FUROSEMIDE 40 MG/4 ML INJECTABLE VIAL ONE (22:34)
[2024-10-04] MEDS: FUROSEMIDE 100 MG/10 ML INJECTABLE VIAL IVPB ONE (22:37)
[2024-10-05 06:05] LABS: HCV DIAGNOSTIC IN-HOUSE W/RFLX NON-REACTIVE (NONREACTIVE)
[2024-10-05 07:05] LABS: ABSOLUTE IMMATURE GRANULOCYTES 0.01 x10^3/uL (0.0-0.031); BASOPHILS # 0.02 x10^3/uL (0.01-0.08); EOSINOPHIL % 1.1 % (0.8-7.0); EOSINOPHILS # 0.06 x10^3/uL (0.04-0.54); MCHC 34.0 g/dl (32.3-36.5); MEAN CELL VOLUME 92.1 fl (79.0-92.2); MEAN PLT VOLUME 10.1 fl (9.4-12.4); MONOCYTE # 0.37 x10^3/uL (0.30-0.82); MONOCYTE % 6.9 % (5.3-12.2); RDW 13.2 % (12.2-16.4)
[2024-10-05 07:10] LABS: CO2 25.0 mmol/L (21-32)
[2024-10-05 07:11] LABS: CREATININE 1.3 mg/dL (0.55-1.3); GLUCOSE,RANDOM 102.0 mg/dL (74-106)
[2024-10-05] MEDS: SACUBITRIL/VALSARTAN 97 MG-103 MG TABLET PO SCH (09:09)
[2024-10-05] MEDS: SPIRONOLACTONE 25 MG TABLET PO SCH (09:09)
[2024-10-05] MEDS: ASPIRIN 81 MG CHEWABLE TABLETS PO SCH (09:09)
[2024-10-05 10:13] LABS: LDL CHOLESTEROL (ONLY SJRH) 86.0 mg/dL (5-100)
[2024-10-05] MEDS: FUROSEMIDE 40 MG/4 ML INJECTABLE VIAL IVPUSH SCH (11:46)
[2024-10-05] MEDS: AMIODARONE HCL 200 MG TABLET PO SCH (13:32)
[2024-10-05] MEDS: CARVEDILOL 12.5 MG TABLET (FP) PO SCH (13:32)
[2024-10-05] MEDS: ATORVASTATIN CA 10 MG TABLET (FP) PO SCH (21:41)
[2024-10-05 23:51] LABS: HIV INTERPRETATION NEGATIVE (NEGATIVE)
[2024-10-06 07:50] LABS: MCHC 33.4 g/dl (32.3-36.5); MEAN CELL VOLUME 92.8 fl (79.0-92.2); MEAN PLT VOLUME 10.5 fl (9.4-12.4); RDW 13.4 % (12.2-16.4)
[2024-10-06 08:14] LABS: GLUCOSE,RANDOM 117.0 mg/dL (74-106)
[2024-10-06 08:15] LABS: CO2 29.0 mmol/L (21-32)
[2024-10-06 08:22] LABS: CREATININE 1.2 mg/dL (0.55-1.3)
[2024-10-06] MEDS: ENOXAPARIN NA (PORCINE) 40 MG/0.4 ML DISP.SYRIN SQ SCH (09:59)
[2024-10-06 14:56] VITALS: RESP 16
[2024-10-06 16:24] VITALS: BP 109/75; PULSE 65; TEMP 97.5
== END 2024-10-06 16:32 | disposition home or self-care (01) ==
LOC: JER 19:09 → JERBED 21:06 → J4S 10-05 00:40
PROVIDERS: ADMIT Internal Medicine
PROC: 3E023GC Introduction of Other Therapeutic Substance into Muscle, Percutaneous Approach (ICD-10-PCS; principal; 2024-10-04)
PROC: 3E033GC Introduction of Other Therapeutic Substance into Peripheral Vein, Percutaneous Approach (ICD-10-PCS; 2024-10-04)
DX: I25.10 Atherosclerotic heart disease of native coronary artery without angina pectoris (principal); I11.0 Hypertensive heart disease with heart failure; I25.5 Ischemic cardiomyopathy; Z95.810 Presence of automatic (implantable) cardiac defibrillator; Z85.46 Personal history of malignant neoplasm of prostate; E78.5 Hyperlipidemia, unspecified; R06.09 Other forms of dyspnea; Z95.1 Presence of aortocoronary bypass graft
CPT/HCPCS: 36415; 71045-TC-FY; 71275-TC; 80048; 80053; 80061; 82550; 82553; 83690; 83735; 83880; 84100; 84439; 84443; 84484; 85025; 85027; 85379; 85610; 85730; 86803; 86850; 86900; 86901; 87389; 87637-QW; 93005; 93010; 93306-TC; 96372; 96374; 96376; 97116-GP; 97161-GP; 99285-25; G0378; Q9967